=== PATIENT | female | born 1935 | race Caucasian/White ===

== ENCOUNTER 2019-01-31 11:10 | Emergency (ER) | payer MEDICARE, OTHER ==
[~2019-01-31] VITALS: Ht 160 cm; Wt 85.0 kg
[~2019-01-31 11:10] MED LIST: AUGMENTIN875TAB PO; CENTRUM SILVER1 TAB; DOXYCYCL HYC100 MG PO; ESTRADIOL1 MG PO; FLONASE NASAL50 MCG; HYDROCHLOROT25 MG PO; LEVAQUIN750 MG PO; LIPITOR80 MG PO; NORVASC2.5 M1 PO; OSCAL 500/1 TAB PO; PREDNISONE20 MG PO; PRILOSEC OTC20 MG PO; ROBITUSSIN AC10 ML PO; SYNTHROID100 MCG PO; TESSALON PER100 MG PO; ZITHROMAX500 MG PO; ZPAK PO
[2019-01-31 11:15] VITALS: BP 151/91
[2019-01-31] MEDS ORDERED: PROTONIX40 M2 PO (11:39)
[2019-01-31] MEDS ORDERED: PEPCID40 MG PO (11:39)
[2019-01-31] MEDS ORDERED: POT CHLORIDE10 ME5 PO (11:40)
[2019-01-31] MEDS ORDERED: ESTRACE1 MG PO (11:43)
[2019-01-31] MEDS ORDERED: BACTRIM DS1 TAB PO (11:48)
[2019-01-31] MEDS ORDERED: CEPHALEXIN500 M1 PO (11:48)
== END 2019-01-31 12:18 | disposition home or self-care (01) ==
LOC: ED 11:10
PROC: 0H97XZZ Drainage of Abdomen Skin, External Approach (ICD-10-PCS; principal; 2019-01-31)
DX: L02.211 Cutaneous abscess of abdominal wall (principal); I10 Essential (primary) hypertension; E03.9 Hypothyroidism, unspecified

== ENCOUNTER 2019-02-02 07:02 | Emergency (ER) | payer MEDICARE, OTHER ==
[~2019-02-02] VITALS: Ht 160 cm; Wt 80.0 kg
[~2019-02-02 07:02] MED LIST changes: +BACTRIM DS1 TAB PO; +CEPHALEXIN500 M1 PO; +ESTRACE1 MG PO; +PEPCID40 MG PO; +POT CHLORIDE10 ME5 PO; +PROTONIX40 M2 PO
[2019-02-02 07:32] VITALS: BP 124/76
== END 2019-02-02 07:42 | disposition home or self-care (01) ==
LOC: ED 07:02
DX: Z48.01 Encounter for change or removal of surgical wound dressing (principal)

== ENCOUNTER 2019-12-05 10:24 | Emergency (ER) | payer MEDICARE, OTHER ==
[2019-12-05] MEDS ORDERED: ZPAK PO (11:11)
[2019-12-05 11:23] VITALS: BP 151/78
== END 2019-12-05 11:52 | disposition home or self-care (01) ==
LOC: ED 10:24
DX: J06.9 Acute upper respiratory infection, unspecified (principal); I10 Essential (primary) hypertension; E03.9 Hypothyroidism, unspecified